=== PATIENT | male | born 2000 | race Caucasian/White ===

== ENCOUNTER 2022-11-09 01:25 | Emergency (ER) | payer BC ==
[~2022-11-09] VITALS: Ht 172.7 cm; Wt 90.7 kg
--- NOTE | 2022-11-09 01:33 | NUR ---
MARIE OLIVA TO CHAIR [place]
[2022-11-09 01:34] VITALS: BP 111/96
[2022-11-09 01:37] VITALS: BP 111/96
--- NOTE | 2022-11-09 01:41 | NUR ---
PATIENT BIB [facility] POLICE DEPT. PATIENT EXAMINED BY . PATIENT MEDICALLY CLEARED AND RELEASED IN CUSTODY IN STABLE CONDITION. ORIGINAL PRE-BOOK FORM GIVEN TO OFFICER JASON, #[id number].
== END 2022-11-09 01:41 ==
LOC: MED 01:25
DX: Z02.89 Encounter for other administrative examinations (principal)
CPT/HCPCS: 99283